=== PATIENT | male | born 1980 | race African-American/Black ===

== ENCOUNTER 2017-10-20 09:52 | Inpatient (IN) | payer OTHER ==
[~2017-10-20] VITALS: Ht 177.8 cm; Wt 176.9 kg
--- NOTE | ~2017-10-20 | HC ---
[facility] [place] [address] CONSULTATION Name: ALEXIS MORALES Room #: 426-P ADM IN M.R.#: [id number] Admission: 10/20/17 Attend Phys: Sukhdeep Singh DO Discharge: Date of : 78 Report #: [id number] THIS REPORT FOR: //name// CC: FAM unknown Sukhdeep Singh DATE OF SERVICE: 10/20/2017 INFECTIOUS DISEASES CONSULTATION REASON FOR CONSULTATION: I was asked to evaluate concerning right groin abscess. HISTORY OF PRESENT ILLNESS: The patient is a 37-year-old, who is obese. He has had recurring episodes of furuncles. Earlier in the week, he developed a right perineal swelling with tenderness. No significant drainage. It worsened associated with increased pain along with fever and chills. He presents to the Emergency Room where he was found to be hyperglycemic. He has had urinary frequency. 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 CT scan showed abscess cavity within the perineum extending into the perirectal space. ALLERGIES: None known. MEDICATIONS: As noted on his MAR including hydrochlorothiazide, Paxil, now vancomycin. PAST MEDICAL HISTORY: Hypertension and depression. FAMILY HISTORY: Noncontributory. SOCIAL HISTORY: Nonsmoker, no significant alcohol intake, no HIV risk factors reported. REVIEW OF SYSTEMS: No cardiopulmonary, GI or complaints. PHYSICAL EXAMINATION: VITAL SIGNS: He is afebrile, hemodynamically stable. GENERAL: He is alert and cooperative and pleasant. He was morbidly obese. HEENT: Unremarkable. Mild dental caries. NECK: Supple. LUNGS: Clear. HEART: Regular. ABDOMEN: Soft and nontender. SKIN: Examination noted several furuncles to his left lateral back as well as his right thigh. He had a larger indurated fluctuant and very tender region in the right perineal region that extended toward the anus. [facility] [address] [place] [address] CONSULTATION Name: ALEXIS MORALES Room #: 426-P [facility]#: [id number] Admission: 10/20/17 Attend Phys: Sukhdeep Singh DO Discharge: Date of : 78 Report #: [id number] LABORATORY STUDIES: Hemoglobin 14.5, WBC 17.4, platelet count 364,000. Creatinine 1.1, blood glucose 390. Liver function test normal. Urinalysis 6-[address] scan of the abdomen and pelvis as noted above. IMPRESSION: A 37-year-old with perineal and right gluteal abscess. He has several other satellite lesions identified. I am suspecting methicillin-resistant Staphylococcus aureus infection in a diabetic; however, also must be concerned about multiple organisms in the perineum. RECOMMENDATIONS: We will continue with vancomycin and Zosyn. Obtain cultures from blood and from the abscess cavity. Screen for methicillin-resistant Staphylococcus aureus. Adjust his antibiotics pending cultures. <ELECTRONICALLY SIGNED> By: Kang Arana MD 10/23/17 1124 [id number] Kang Arana MD /alyssa
--- NOTE | ~2017-10-20 | HC ---
[facility] [place] [address] CONSULTATION Name: ALEXIS MORALES Room #: 423-1 ADM IN M.R.#: [id number] Admission: 10/20/17 Attend Phys: Sukhdeep Singh DO Discharge: Date of : 78 Report #: [id number] THIS REPORT FOR: //name// CC: FAM unknown Sukhdeep Singh DATE OF SERVICE: 10/20/2017 REFERRING PROVIDER: Sukhdeep Singh DO REASON FOR CONSULT: Right gluteal abscess. HISTORY OF PRESENT ILLNESS: The patient is a 37-year-old morbidly obese male with a history of hypertension who presented to the Emergency Room with low blood pressure, tachycardia and a right gluteal/perineal abscess. The patient upon admission was noted to have a markedly elevated glucose of 390. The patient has no known history of diabetes mellitus, although he does complain of constant urinary frequency and being thirsty all the time. The patient underwent labs and a CT scan which showed a leukocytosis with a white blood cell count of 17.[address] scan showed perineal abscess without extension into the perirectal space. As such, I am asked to evaluate from a surgical standpoint. PAST MEDICAL HISTORY: Hypertension and depression. MEDICATIONS: Hydrochlorothiazide and Paxil. ALLERGIES: No known drug allergies. SOCIAL HISTORY: The patient does not utilize tobacco, alcohol or illicit drugs. FAMILY HISTORY: Reviewed and noncontributory. REVIEW OF SYSTEMS: GENERAL: The patient denies nocturnal fevers or chills. HEENT: No change in vision, change in hearing. NECK: No swelling or difficulty swallowing. HEART: No chest pain or palpitations. LUNGS: No cough or shortness of breath. ABDOMEN: No nausea, no vomiting. GENITOURINARY: No dysuria or hematuria. ENDOCRINE: No polyuria, polydipsia. HEMATOLOGIC: No history of bleeding or easy bruising. EXTREMITIES: No history weakness or limited range of motion. NEUROLOGIC: No history of syncope or near syncopal episodes. SKIN AND INTEGUMENT: No history of abnormal lesions or moles. [facility] [address] [place] [address] CONSULTATION Name: CARMENNENAEULALIO Jael Room #: 423-1 [facility] IN .R.#: [id number] Admission: 10/20/17 Attend Phys: Sukhdeep Singh DO Discharge: Date of : 78 Report #: [id number] PSYCHIATRIC: No history of anxiety or depression. PHYSICAL EXAMINATION: VITAL SIGNS: Temperature 99.0, pulse 107, respirations 20, blood pressure 142/94. He is 5 feet 10 inches tall, weighs 390 pounds. GENERAL: Alert and oriented, in no acute distress. HEENT: Normocephalic, atraumatic. Pupils equal, round, reactive to light. NECK: Supple, without lymphadenopathy. Trachea midline. HEART: Regular rate and rhythm. LUNGS: Clear to auscultation bilaterally. ABDOMEN: Soft, nontender, nondistended, but he is obese. GENITOURINARY: Normal external male genitalia. EXTREMITIES: No clubbing, cyanosis or edema. NEUROLOGIC: Cranial nerves 2-12 are grossly intact. PSYCHIATRIC: Normal mood and affect. SKIN AND INTEGUMENT: He has a 3 x 3 cm area of marked erythema with induration and fluctuance to the right inferior gluteal fold. LABORATORY AND X-RAY DATA: CBC shows white blood cell count of 17.4 thousand, hemoglobin is 14.5, platelets 364,000. Creatinine 1.1, glucose is 390. Lactic acid is 2.2 before any rehydration. Liver function enzymes are normal. Urinalysis shows trace leukocyte esterase and 6-15 white blood cells per high power field with no squamous epithelial cells. CT scan of the abdomen and pelvis as per HPI shows a perineal abscess. ASSESSMENT AND PLAN: A 37-year-old super morbidly obese male with hyperglycemia, which is likely a new diagnosis of diabetes mellitus, a right perineal/gluteal abscess and a urinary tract infection. The patient has been admitted and given IV fluid rehydration and started on IV antibiotics, which I recommend continuing with. The patient should have a hemoglobin A1c sent for confirmation of his diabetes and we will prepare to go to the operating room at the first available opportunity for incision and drainage with packing of his perineal abscess. Risks, benefits and alternatives of that have been discussed with the patient in detail and he agrees to proceed as outlined. I sincerely appreciate this consult. I will follow along and leave any further recommendations in the patient's chart as appropriate. <ELECTRONICALLY SIGNED> By: Ely Hawley MD, FACS 10/20/17 1558 1535 1553 Ely Hawley MD, FACS /nt
--- NOTE | ~2017-10-20 | O ---
[facility] [place] [address] OPERATIVE REPORT Name: CARMENALEXIS Jael Room #: 426-P ADM IN M.R.#: [id number] Admission: 10/20/17 Attend Phys: Sukhdeep Singh DO Discharge: Date of : 78 Report #: [id number] THIS REPORT FOR: //name// CC: FAM unknown Sukhdeep Singh DATE OF SERVICE: 10/21/2017 PREOPERATIVE DIAGNOSES: 1. Right gluteal/perineal abscess with overlying necrosis. 2. Super morbid obesity. 3. Hypertension. 4. Depression. 5. New diagnosis of diabetes mellitus. POSTOPERATIVE DIAGNOSES: 1. Right gluteal/perineal abscess with overlying necrosis. 2. Super morbid obesity. 3. Hypertension. 4. Depression. 5. New diagnosis of diabetes mellitus. 6. Undrained subfascial abscess below necrotic skin. PROCEDURES PERFORMED: 1. Excisional debridement of skin, subcutaneous tissue and nonviable muscle from his right gluteal/perineal wound ultimately measuring 3 x 3 cm in dimension (9 square cm). Preoperative wound measurements were 2 x 2 cm with surrounding necrosis. 2. Drainage of a deep subfascial abscess with packing. SURGEON: Ely Hawley M.D. ANESTHESIA: Monitored anesthesia care. ESTIMATED BLOOD LOSS: Minimal (less than 5 mL). COMPLICATIONS: None appreciated. SPECIMENS: Culture swabs x 2 as well as excised tissue to pathology and microbiology. COMPLICATIONS: None appreciated. INDICATIONS: The patient is a 37-year-old morbidly obese male with a history of hypertension and numerous boils who presented yesterday with hypotension, tachycardia and a large right gluteal-perineal abscess. The patient was found [facility] [address] [place] [address] OPERATIVE REPORT Name: ALEXIS MORALES Room #: 426-P ADM IN M.R.#: [id number] Admission: 10/20/17 Attend Phys: Sukhdeep Singh DO Discharge: Date of : 78 Report #: [id number] to have a markedly elevated glucose of 390 as well as hypotension and tachycardia and has returned positive blood cultures for gram-positive rods. The patient has been admitted with sepsis protocol and due to his very large abscess, necessitated drainage. Unfortunately, the patient does have necrotic skin overlying, which required formal excisional debridement as well as drainage of his deeper abscess for definitive management. DESCRIPTION OF PROCEDURE: After explaining the risks, benefits and alternatives of the procedure with the patient in detail in the preoperative holding area and obtaining written consent, the patient was brought to the operating room and placed supine on the operating room table. After conducting a thorough timeout procedure verifying correct patient and procedure, the patient was given monitored anesthesia care. Once adequate anesthesia was attained, his SCDs were hooked up to pneumatic compression device and he was given a preoperative dose of antibiotics in line with the SCIP protocol, as he is already on an inpatient regimen under the guidance of Infectious Disease. The patient's perianal and right gluteal area was now prepped and draped in standard surgical sterile fashion after positioning him in the lithotomy position. There were 2 areas of punctate opening draining purulent material as well as surrounding overlying necrotic skin and as such, a #15 bladed scalpel was used to connect the two draining spots with significant evacuation of approximately 200 mL of foul smelling purulent drainage. Culture swabs were taken and sent to the microbiology lab for aerobic and anaerobic culture and sensitivity. A finger was now placed in the abscess cavity and I proceeded to break up all loculations to ensure full drainage, which tracked to a subfascial level. The area was copiously irrigated. The overlying necrotic skin was debrided back including skin, subcutaneous tissue and all nonviable muscle with electrocautery. This left a 3 x 3 cm wound. After complete irrigation, we had complete hemostasis with just a very slight generalized ooze as per usual. As the cavity was now fully evacuated of any purulent material, albeit with still significant surrounding induration, we proceeded to pack the wound open using sterile saline soaked Kerlix gauze. The wound was dressed with ABDs and Medipore tape. At the end of the procedure, all instrument, needle and sponge counts were correct. The patient tolerated the procedure without incident, was awakened in the operating room, transitioned to the recovery room in stable condition with no apparent complications. <ELECTRONICALLY SIGNED> By: Ely Hawley MD, FACS 10/22/17 1010 1025 1057 Ely Hawley MD, FACS /nt
--- NOTE | ~2017-10-20 | HC ---
[facility] [place] [address] CONSULTATION Name: ALEXIS MORALES Room #: 426-P ADM IN M.R.#: [id number] Admission: 10/20/17 Attend Phys: Sukhdeep Singh DO Discharge: Date of : 78 Report #: [id number] THIS REPORT FOR: //name// CC: FAM unknown Sukhdeep Singh DATE OF SERVICE: 10/22/2017 WOUND CARE CONSULTATION NOTE REASON FOR CONSULTATION: Status post incision and drainage of right posterior thigh subcutaneous abscess by Dr. Hawley. HISTORY OF PRESENT ILLNESS: The patient is a 37-year-old gentleman who works in [employer]. He suffers from super morbid obesity. This gentleman was admitted to the Emergency Department on 10/20/2017 for hypotension. He felt hot and lightheaded, fatigued, was seen through the Emergency Room and admitted. At the time of admission, he had a "boil" of his right inferior gluteal fold, upper aspect of the right thigh. This has been getting larger and more painful. The patient underwent operative incision and drainage and debridement of the abscess of the right posterior thigh by Dr. Hawley on 10/21/2017, packed the wound. He has consulted Wound Care. PAST MEDICAL HISTORY: Super morbid obesity, hypertension for which he takes hydrochlorothiazide. MEDICATIONS: Paxil, hydrochlorothiazide. ALLERGIES: None. SOCIAL HISTORY: Does not smoke or drink. REVIEW OF SYSTEMS: Noncontributory. PHYSICAL EXAMINATION: GENERAL: Shows a super morbidly obese, pleasant young male. Respirations unlabored. HEENT: Mucous membranes are moist. NECK: Supple. ABDOMEN: Super morbidly obese. EXTREMITIES: There are no extremity wounds. Examination of the patient's right buttock near the posterior thigh shows an incision and drainage wound measuring deep. Wound packing is removed. Healthy adipose tissue was in the wound. There was some drainage, minimal exudate. Wound is approximately 2 cm deep. Wound was repacked with saline gauze. [facility] [address] [place] [address] CONSULTATION Name: ALEXIS MORALES Room #: 426-[facility] IN M.R.#: [id number] Admission: 10/20/17 Attend Phys: Sukhdeep Singh DO Discharge: Date of : 78 Report #: [id number] IMPRESSION: 1. Super morbid obesity. 2. Right posterior thigh gluteal abscess. PLAN: Continue IV antibiotics. We will order Aquacel Ag or Maxorb Ag packing for the wound daily, wound care team will follow. He can follow up with us in [facility]. <ELECTRONICALLY SIGNED> By: Varinder Gonzalez MD 10/24/17 [id number] 04 Varinder Gonzalez MD /nt
--- NOTE | ~2017-10-20 | EKG ---
[place] [address] [address] [place] [address] ELECTROCARDIOGRAM REPORT Name: ALEXIS MORALES Room #: 426-P ADM IN M.R.#: [id number] Admission: 10/20/17 Attend Phys: Sukhdeep Singh DO Discharge: Date of : 78 Report #: [id number] THIS REPORT FOR: //name// [facility] ED Test Date: 2017-10-20 Test Time: 10:24:07 Pat Name: ALEXIS MORALES Department: Room: 42 Gender: M Traveling Buyer: franc : 1980 Requested By: Arsen Avila Order Number: [id number] MD: Sivakumar Florez Measurements Intervals [place] Rate: 87 P: 36 FL: 154 QRS: -26 QRSD: 86 T: 29 QT: 353 QTc: 425 Interpretive Statements Sinus rhythm LVH by voltage Compared to ECG 12/17/2007 19:47:42 No significant change was found Electronically Signed On 10-22-2017 13:51:11 CDT by Sivakumar Florez [email or web address] <ELECTRONICALLY SIGNED> By: Sivakumar Florez MD, [facility] 10/22/17 1351 1024 1024 Sivakumar Florez MD, FAC /EPI
[2017-10-20 10:01] VITALS: BP 149/77
[2017-10-20 10:26] LABS: ABSOLUTE NEUTROPHILS 14.8 thou/uL (1.4-8.2); BASOPHILS 0.7 % (0.0-2.0); EOSINOPHILS 0.4 % (0.0-3.0); HEMATOCRIT 44.7 % (42.0-52.0); HEMOGLOBIN 14.5 gm/dL (14.0-18.0); LYMPHOCYTES 10.1 % (24.0-44.0); MCH 26.4 pg (26.0-34.0); MCHC 32.4 g/dL (28.0-37.0); MCV 81.5 fL (80.0-100.0); MONOCYTES 3.4 % (1.0-8.0); PLATELET COUNT 364 thou/uL (150-400); POLYS 85.4 % (36.0-66.0); RBC 5.49 mil/uL (4.50-6.00); RDW 13.9 % (10.5-14.5); WBC 17.4 thou/uL (4.0-11.0)
[2017-10-20 10:35] LABS: ANION GAP 6 mmol/L (7-16); BUN 11 mg/dL (7-18); CALCIUM 9.6 mg/dL (8.5-10.1); CHLORIDE 95 mmol/L (98-107); CO2 27 mmol/L (21-32); CREATININE 1.1 mg/dL (0.7-1.3); GLUCOSE 390 mg/dL (74-106); POTASSIUM 4.3 mmol/L (3.5-5.1); SODIUM 128 mmol/L (136-145)
[2017-10-20 10:44] LABS: ALBUMIN 3.2 g/dL (3.4-5.0); SGOT 20 U/L (15-37); SGPT 33 U/L (30-65); TOTAL BILIRUBIN 0.6 mg/dL (<0.1-1.0); TOTAL PROTEIN 9.1 g/dL (6.4-8.2); TROPONIN-I < 0.04 ng/mL (<0.06)
[2017-10-20 11:20] LABS: HCO3 25.5 mmol/L (22.0-26.0); PCO2 VENOUS 40.3 mmHg (41.0-51.0); PO2 VENOUS 77.5 mmHg (35.0-45.0)
[2017-10-20 11:26] LABS: URINE BILIRUBIN NEGATIVE (Negative); URINE BLOOD NEGATIVE (Negative); URINE CLARITY CLEAR; URINE COLOR YELLOW; URINE GLUCOSE-RANDOM* 3+ (Negative); URINE KETONES TRACE (Negative); URINE NITRITE-REFLEX NEGATIVE (Negative); URINE PROTEIN (DIPSTICK) TRACE (Negative); URINE SPECIFIC GRAVITY 1.015 (1.005-1.035); URINE UROBILINOGEN 0.2 E.U./dl (0.2-1.0)
[2017-10-20 11:28] LABS: URINE LEUKOCYTES-REFLEX TRACE (Negative)
[2017-10-20 11:35] LABS: CASTS None Seen /LPF (None Seen); CRYSTALS None Seen /LPF (None Seen); HYALINE CASTS 4-10 Moderate /LPF (None Seen); MUCUS 0-3 Light strn/LPF (None Seen); SQUAMOUS None Seen /LPF (0-3)
[2017-10-20 11:36] LABS: BACTERIA-REFLEX None Seen /HPF (None Seen); URINE RBC 0-2 Rare /HPF (0-2); URINE WBC-REFLEX 6-15 Few /HPF (0-5)
[2017-10-20] MEDS ORDERED: PAXIL10 MG PO (11:47)
[2017-10-20] MEDS ORDERED: HYDROCHLOROTH12.5 M2 PO (11:47)
[2017-10-20 11:50] VITALS: BP 148/88
[2017-10-20 15:06] VITALS: BP 142/94
[2017-10-20] MEDS ORDERED: CLONAZEPAM 0.50.5 M1 (15:48)
[2017-10-20] MEDS ORDERED: BENADRYL25 MG PO (15:50)
[2017-10-20 20:59] VITALS: BP 145/83
[2017-10-21 00:09] LABS: GLYCOHEMOGLOBIN (HGB A1C) 11.9 % (4.8-5.6)
[2017-10-21 03:11] VITALS: BP 148/94
[2017-10-21 04:20] LABS: HEMATOCRIT 40.3 % (42.0-52.0); HEMOGLOBIN 13.1 gm/dL (14.0-18.0); MCH 26.4 pg (26.0-34.0); MCHC 32.4 g/dL (28.0-37.0); MCV 81.4 fL (80.0-100.0); RBC 4.94 mil/uL (4.50-6.00); RDW 13.8 % (10.5-14.5); WBC 13.7 thou/uL (4.0-11.0)
[2017-10-21 04:34] LABS: CALCIUM 8.9 mg/dL (8.5-10.1); CREATININE 0.8 mg/dL (0.7-1.3); POTASSIUM 3.7 mmol/L (3.5-5.1)
[2017-10-21 04:44] LABS: CHOLESTEROL 168 mg/dL (<200); HDL CHOLESTEROL 31 mg/dL (>40); LDL CHOLESTEROL 118 mg/dL (<100); TC:HDL 5.4 Ratio (Not establshd); TRIGLYCERIDE 96 mg/dL (<150); VLDL 19 mg/dL (<40)
[2017-10-21 04:48] LABS: SERUM ASSESSMENT Clear
[2017-10-21 07:35] VITALS: BP 155/79
[2017-10-21 09:00] VITALS: BP 155/79
[2017-10-21 15:35] VITALS: BP 130/76
[2017-10-21 20:06] VITALS: BP 116/85; BP 124/75
[2017-10-21 23:09] LABS: GLYCOHEMOGLOBIN (HGB A1C) 11.7 % (4.8-5.6)
[2017-10-22 03:30] VITALS: BP 147/89
[2017-10-22 06:17] LABS: ABSOLUTE NEUTROPHILS 6.2 thou/uL (1.4-8.2); BASOPHILS 0.6 % (0.0-2.0); EOSINOPHILS 3.1 % (0.0-3.0); HEMATOCRIT 41.5 % (42.0-52.0); HEMOGLOBIN 13.2 gm/dL (14.0-18.0); LYMPHOCYTES 26.5 % (24.0-44.0); MCH 26.4 pg (26.0-34.0); MCHC 31.9 g/dL (28.0-37.0); MCV 82.7 fL (80.0-100.0); MONOCYTES 5.7 % (1.0-8.0); PLATELET COUNT 346 thou/uL (150-400); POLYS 64.1 % (36.0-66.0); RBC 5.02 mil/uL (4.50-6.00); WBC 9.7 thou/uL (4.0-11.0)
[2017-10-22 06:24] LABS: CALCIUM 8.7 mg/dL (8.5-10.1); CREATININE 0.8 mg/dL (0.7-1.3); POTASSIUM 3.9 mmol/L (3.5-5.1)
[2017-10-22 07:30] VITALS: BP 154/94
[2017-10-22 19:59] VITALS: BP 129/69
[2017-10-22 20:30] LABS: ABSOLUTE NEUTROPHILS 6.9 thou/uL (1.4-8.2); BASOPHILS 0.7 % (0.0-2.0); EOSINOPHILS 3.3 % (0.0-3.0); HEMATOCRIT 40.3 % (42.0-52.0); HEMOGLOBIN 13.1 gm/dL (14.0-18.0); LYMPHOCYTES 25.5 % (24.0-44.0); MCH 26.8 pg (26.0-34.0); MCHC 32.5 g/dL (28.0-37.0); MCV 82.3 fL (80.0-100.0); MONOCYTES 5.1 % (1.0-8.0); PLATELET COUNT 400 thou/uL (150-400); POLYS 65.4 % (36.0-66.0); RDW 13.7 % (10.5-14.5); WBC 10.5 thou/uL (4.0-11.0)
[2017-10-22 20:37] LABS: CALCIUM 9.3 mg/dL (8.5-10.1); CREATININE 0.9 mg/dL (0.7-1.3); POTASSIUM 4.5 mmol/L (3.5-5.1)
[2017-10-23 03:49] VITALS: BP 111/66
[2017-10-23 06:03] LABS: ABSOLUTE NEUTROPHILS 5.2 thou/uL (1.4-8.2); BASOPHILS 0.8 % (0.0-2.0); EOSINOPHILS 3.7 % (0.0-3.0); HEMATOCRIT 39.5 % (42.0-52.0); LYMPHOCYTES 32.3 % (24.0-44.0); MCH 26.8 pg (26.0-34.0); MCHC 32.8 g/dL (28.0-37.0); MCV 81.7 fL (80.0-100.0); MONOCYTES 4.9 % (1.0-8.0); PLATELET COUNT 373 thou/uL (150-400); POLYS 58.3 % (36.0-66.0); RBC 4.84 mil/uL (4.50-6.00); RDW 13.8 % (10.5-14.5); WBC 8.9 thou/uL (4.0-11.0)
[2017-10-23 06:18] LABS: CALCIUM 9.1 mg/dL (8.5-10.1); CREATININE 0.6 mg/dL (0.7-1.3)
[2017-10-23 08:10] VITALS: BP 162/93
[2017-10-23 15:35] VITALS: BP 140/79
[2017-10-23 21:00] VITALS: BP 155/92
[2017-10-24 05:30] VITALS: BP 142/57
[2017-10-24 05:38] LABS: ABSOLUTE NEUTROPHILS 5.2 thou/uL (1.4-8.2); BASOPHILS 0.8 % (0.0-2.0); EOSINOPHILS 2.6 % (0.0-3.0); HEMATOCRIT 40.1 % (42.0-52.0); HEMOGLOBIN 13.3 gm/dL (14.0-18.0); MCH 26.9 pg (26.0-34.0); MCHC 33.1 g/dL (28.0-37.0); MCV 81.5 fL (80.0-100.0); MONOCYTES 5.3 % (1.0-8.0); PLATELET COUNT 386 thou/uL (150-400); POLYS 58.3 % (36.0-66.0); RBC 4.93 mil/uL (4.50-6.00); RDW 13.9 % (10.5-14.5)
[2017-10-24 06:10] LABS: CALCIUM 9.7 mg/dL (8.5-10.1); CREATININE 0.7 mg/dL (0.7-1.3); POTASSIUM 4.6 mmol/L (3.5-5.1)
[2017-10-24 07:30] VITALS: BP 131/82
[2017-10-24 08:30] VITALS: BP 131/82
[2017-10-24 12:15] VITALS: BP 149/83
[2017-10-24 16:59] VITALS: BP 149/79
[2017-10-24 19:30] VITALS: BP 137/79
[2017-10-25 03:43] VITALS: BP 148/98
[2017-10-25 06:09] LABS: ABSOLUTE NEUTROPHILS 4.7 thou/uL (1.4-8.2); BASOPHILS 0.8 % (0.0-2.0); EOSINOPHILS 3.3 % (0.0-3.0); HEMATOCRIT 40.6 % (42.0-52.0); HEMOGLOBIN 13.3 gm/dL (14.0-18.0); LYMPHOCYTES 30.4 % (24.0-44.0); MCH 26.8 pg (26.0-34.0); MCHC 32.7 g/dL (28.0-37.0); MCV 81.9 fL (80.0-100.0); MONOCYTES 6.2 % (1.0-8.0); PLATELET COUNT 379 thou/uL (150-400); POLYS 59.3 % (36.0-66.0); RBC 4.96 mil/uL (4.50-6.00); RDW 14.2 % (10.5-14.5)
[2017-10-25 06:21] LABS: CALCIUM 9.3 mg/dL (8.5-10.1); CREATININE 0.7 mg/dL (0.7-1.3); POTASSIUM 3.7 mmol/L (3.5-5.1)
[2017-10-25 07:30] VITALS: BP 134/87
[2017-10-25] MEDS ORDERED: AMLODIPINE BESYL5 M1 PO (08:46)
[2017-10-25] MEDS ORDERED: HYDROCODON-ACE1 EAC7 PO (08:46)
[2017-10-25] MEDS ORDERED: HUMULIN R100 UNIT/M SUBQ (08:47)
[2017-10-25] MEDS ORDERED: NOVOLIN N100 UNIT/3 SUBQ (08:47)
[2017-10-25] MEDS ORDERED: GLUCOPHAGE XR500 MG PO (08:47)
[2017-10-25 14:38] VITALS: BP 134/87
[2017-10-25 14:45] VITALS: BP 134/87
[2017-10-25] MEDS ORDERED: AUGMENTIN 875-1 EACH PO (15:08)
== END 2017-10-25 17:54 | disposition home or self-care (01) | DRG 854 ==
LOC: ER 09:52 → EROBS 11:38 → 4E 12:46 → ENTRNSPT 10-25 17:47 → 4E 10-25 17:54
PROVIDERS: Emergency Medicine; Family Medicine; Hospitalist; Nurse Practitioner; Surgery
PROC: 0KBM0ZZ Excision of Perineum Muscle, Open Approach (ICD-10-PCS; principal; 2017-10-21)
DX: A41.9 Sepsis, unspecified organism (principal); Z68.43 Body mass index [BMI] 50.0-59.9, adult; L02.31 Cutaneous abscess of buttock; L02.215 Cutaneous abscess of perineum; N39.0 Urinary tract infection, site not specified; E87.1 Hypo-osmolality and hyponatremia; I10 Essential (primary) hypertension; F32.9 Major depressive disorder, single episode, unspecified; E66.01 Morbid (severe) obesity due to excess calories; E11.65 Type 2 diabetes mellitus with hyperglycemia; Z91.018 Allergy to other foods
CPT/HCPCS: 10183; 50010; 50101; 50386; 62110; 62850